=== PATIENT | female | born 1985 | race Caucasian/White ===

== ENCOUNTER → 2020-07-14 | Outpatient (CLI) | payer OTHER ==
[~2020-07-14] MED LIST: IBU600 MG PO; NATURAL IRON65 MG; PRENATAL TABLET PO
--- NOTE | 2020-07-14 12:33 | NUR ---
Called pt's doctor for request to send in script for glucometer and supplies to begin checking blood sugars.
== END ==
LOC: DIA.ED
DX: O24.419 Gestational diabetes mellitus in pregnancy, unspecified control (principal)
CPT/HCPCS: G0108

== ENCOUNTER 2020-09-10 00:07 | Inpatient (IN) | payer OTHER ==
[~2020-09-10] VITALS: Ht 160 cm; Wt 59.1 kg
[2020-09-10] VITALS (35 sets, daily range): BP systolic 104–162; BP diastolic 55–83; PULSE 51–87; TEMP 97.5–98.5
[2020-09-10] MEDS ORDERED: NATURAL IRON65 MG (07:24)
[2020-09-10] MEDS ORDERED: PRENATAL TABLET PO (07:24)
[2020-09-10 08:08] LABS: BASO % 0.5 % (0.0-2.0); EOS % 0.5 % (0-4.0); GRAN # 3.7 (1.4-6.5); GRAN % 66.1 % (42.2-75.2); HEMATOCRIT 38.8 % (37.0-47.0); HEMOGLOBIN 12.6 g/dl (12.5-16.0); LYMPH # 1.2 (1.2-3.4); LYMPH % 22.1 % (20.0-51.0); MEAN CELL VOLUME 90 fl (80.0-100.0); MEAN CORPUSCULAR HEMOGLOBIN 29 pg (27.0-31.0); MEAN CORPUSCULAR HGB CONC 33 g/dl (33.0-37.0); MEAN PLATELET VOLUME 13.4 fl (7.4-10.4); MONO # 0.6 (0.1-0.6); MONO % 10.4 % (1.7-9.3); PLATELET COUNT 123 K/mm3 (130-400); RED BLOOD COUNT 4.33 M/mm3 (4.10-5.30); REDCELL DISTRIBUTION WIDTH-CV 15.3 % (11.5-14.5)
[2020-09-11 02:25] VITALS: BP 112/58; PULSE 88; TEMP 98
[2020-09-11 06:24] LABS: HEMOGLOBIN 11.8 g/dl (12.5-16.0)
[2020-09-11 06:25] LABS: HEMATOCRIT 35.4 % (37.0-47.0)
[2020-09-11 07:45] VITALS: BP 103/72; PULSE 69; TEMP 97.5
[2020-09-11] MEDS ORDERED: IBU600 MG PO (07:46)
[2020-09-11 12:48] VITALS: BP 104/65; PULSE 75; TEMP 98.3
== END 2020-09-11 15:45 | disposition home or self-care (01) | DRG 807 ==
LOC: LDR 00:07 → OB 06:41 → LDR 06:41 → OB 10:10
PROVIDERS: ADMIT Obstetrics & Gynecology
PROC: 10E0XZZ Delivery of Products of Conception, External Approach (ICD-10-PCS; principal; 2020-09-10)
PROC: 10907ZC Drainage of Amniotic Fluid, Therapeutic from Products of Conception, Via Natural or Artificial Opening (ICD-10-PCS; 2020-09-10)
DX: O24.420 Gestational diabetes mellitus in childbirth, diet controlled (principal); O99.02 Anemia complicating childbirth; D64.9 Anemia, unspecified; O99.344 Other mental disorders complicating childbirth; Z37.0 Single live birth; Z3A.38 38 weeks gestation of pregnancy
CPT/HCPCS: J2590; J2795; J7120